=== PATIENT | male | born 1940 | race Caucasian/White ===

== ENCOUNTER 2016-03-08 09:39 | Outpatient (CLI) | payer MEDICARE, OTHER | END 2016-03-08 09:40 | disposition home or self-care (01) | DX: E78.5 Hyperlipidemia, unspecified (principal); I10 Essential (primary) hypertension; L57.0 Actinic keratosis; M25.511 Pain in right shoulder ==

== ENCOUNTER 2016-11-22 13:49 | Outpatient (CLI) | payer MEDICARE, OTHER ==
--- NOTE | 2016-11-22 16:17 | XRAY Report ---
TWO VIEW RIGHT LOWER LE11/22/2016 CLINICAL INDICATION: Cellulitis. FINDINGS: Frontal and lateral views of the right lower leg demonstrate no evidence of fracture. Diff use soft tissue swelling is present. No radiopaque foreign body is seen in the soft tissues. No osteo lysis is seen to suggest osteomyelitis. IMPRESSION: SOFT TISSUE SWELLING, BUT NO EVIDENCE OF FRACTURE OR OSTEOMYELITIS. JOB #: [id number] EXT JOB #:[id number]
== END 2016-11-22 13:50 | disposition home or self-care (01) ==
LOC: DI.S 13:49
PROVIDERS: ATTEND Internal Medicine
DX: L03.115 Cellulitis of right lower limb (principal)

== ENCOUNTER 2016-12-28 10:06 | Outpatient (CLI) | payer MEDICARE, OTHER ==
[2016-12-28 18:17] LABS: BUN - BLOOD UREA NITROGEN 18 mg/dL (6-20); CALCIUM 9.4 mg/dL (8.5-10.3); CARBON DIOXIDE - CO2 26 mmol/L (21-32); CHLORIDE 105 mmol/L (101-111); CHOL/HDL RATIO 3.6 (<5.0); CHOLESTEROL 145 mg/dL; CREATININE 0.9 mg/dL (0.6-1.2); GFR - MDRD 82 (>89); GLUCOSE 95 mg/dL (70-100); HDL CHOLESTEROL 40 mg/dL; LDL/HDL RATIO 1.8 (<3.6); POTASSIUM 4.4 mmol/L (3.5-5.0); SODIUM 139 mmol/L (135-145); TRIGLYCERIDES 165 mg/dL; VLDL CHOLESTEROL 33 mg/dL
== END 2016-12-28 10:07 | disposition home or self-care (01) ==
LOC: LAB.F 10:06
PROVIDERS: ATTEND Internal Medicine
DX: I10 Essential (primary) hypertension (principal); L03.115 Cellulitis of right lower limb; Z79.899 Other long term (current) drug therapy; I25.810 Atherosclerosis of coronary artery bypass graft(s) without angina pectoris; Z95.1 Presence of aortocoronary bypass graft; I34.0 Nonrheumatic mitral (valve) insufficiency; E78.5 Hyperlipidemia, unspecified; G47.33 Obstructive sleep apnea (adult) (pediatric)
CPT/HCPCS: 36415; 80048; 80061; 82607

== ENCOUNTER 2017-02-23 11:39 | Outpatient (CLI) | payer MEDICARE, OTHER ==
--- NOTE | 2017-02-23 12:43 | XRAY Report ---
DATE OF SERVICE: 02/23/2017 TWO VIEW CHEST: 02/23/2017 CLINICAL INDICATION: Cold. COMPARISON: 08/12/2015. FINDINGS: Frontal and lateral views of the chest demonstrate changes of previous cardiac surgery. The cardiac silhouette is not enlarged. The lungs are hyperinflated, suggestive of COPD. No focal consolidation, effusion, or pneumothorax is present. IMPRESSION: HYPERINFLATION, SUGGESTIVE OF COPD. NO EVIDENCE OF ACUTE CARDIOPULMONARY DISEASE. TD: 02/23/2017 13:42
== END 2017-02-23 11:40 | disposition home or self-care (01) ==
LOC: DI 11:39
PROVIDERS: ATTEND Internal Medicine
DX: R07.81 Pleurodynia (principal)
CPT/HCPCS: 71046

== ENCOUNTER 2017-06-28 14:35 | Outpatient (CLI) | payer MEDICARE, OTHER ==
--- NOTE | 2017-06-29 09:04 | XRAY Report ---
THREE VIEW RIGHT SHOULDER: 06/28/2017 CLINICAL INDICATION: Arthralgia. FINDINGS: AP, oblique, scapular Y views of the right shoulder demonstrate severe osteoarthritis of the glenohumeral joint, with bulky osteophytes. There is no evidence of acute fracture or dislocation. No radiopaque foreign body is seen in the soft tissues. IMPRESSION: SEVERE GLENOHUMERAL OSTEOARTHRITIS. TD: 06/29/2017 08:56
== END 2017-06-28 14:36 | disposition home or self-care (01) ==
LOC: DI.S 14:35
PROVIDERS: ATTEND Internal Medicine
DX: M25.511 Pain in right shoulder (principal); M19.011 Primary osteoarthritis, right shoulder

== ENCOUNTER 2017-12-15 13:21 | Outpatient (CLI) | payer MEDICARE, OTHER ==
[2017-12-15 18:25] LABS: BUN - BLOOD UREA NITROGEN 16 mg/dL (6-20); CALCIUM 9.5 mg/dL (8.5-10.3); CARBON DIOXIDE - CO2 28 mmol/L (21-32); CHLORIDE 107 mmol/L (101-111); CHOL/HDL RATIO 3.1 (<5.0); CHOLESTEROL 151 mg/dL; GFR - MDRD 72 (>89); GLUCOSE 100 mg/dL (70-100); HDL CHOLESTEROL 49 mg/dL; LDL CHOLESTEROL,CALCULATED 69 mg/dL; LDL/HDL RATIO 1.4 (<3.6); SODIUM 142 mmol/L (135-145); VLDL CHOLESTEROL 33 mg/dL
== END 2017-12-15 13:22 | disposition home or self-care (01) ==
LOC: LAB.F 13:21
PROVIDERS: ATTEND Internal Medicine Interventional Cardiology
DX: I25.810 Atherosclerosis of coronary artery bypass graft(s) without angina pectoris (principal)
CPT/HCPCS: 36415; 80048; 80061; 83721

== ENCOUNTER 2018-09-01 18:09 | Outpatient (CLI) | payer MEDICARE, OTHER ==
--- NOTE | 2018-09-02 19:28 | XRAY Report ---
Reason: ACUTE BRONCHITIS, UNSPECIFIED Procedure Date: 09/01/2018 Accession Number: [id number] / [id number] Procedure: XR - Chest 2 View X-Ray CPT Code: 82030 FULL RESULT: EXAM: CHEST RADIOGRAPHY EXAM DATE: 09/01/2018 06:15 PM. CLINICAL HISTORY: ACUTE BRONCHITIS, UNSPECIFIED. COMPARISON: CHEST 2 VIEW 02/23/2017 11:46 AM. TECHNIQUE: 2 views. FINDINGS: Lungs/Pleura: No overt edema. No focal pneumonia. No gross pneumothorax or large effusion. Mediastinum: Heart size within normal limits. No mediastinal shift. Other: Previous median sternotomy. IMPRESSION: No acute process seen in the chest. RADIA
== END 2018-09-01 18:10 | disposition home or self-care (01) ==
LOC: DI 18:09
PROVIDERS: ATTEND Internal Medicine
DX: J20.9 Acute bronchitis, unspecified (principal)
CPT/HCPCS: 71046

== ENCOUNTER 2018-09-23 16:02 | Outpatient (CLI) | payer MEDICARE, OTHER ==
--- NOTE | 2018-09-25 06:37 | XRAY Report ---
Reason: loss of ROM Procedure Date: 09/23/2018 Accession Number: [id number] / [id number] Procedure: XR - Shoulder 3 View RT CPT Code: FULL RESULT: EXAM: RIGHT SHOULDER RADIOGRAPHY EXAM DATE: 09/23/2018 04:20 PM. CLINICAL HISTORY: Constant dull ache. Decreased range of motion. COMPARISON: SHOULDER 3 VIEW RT 06/28/2017 2:50 PM. TECHNIQUE: 4 views. FINDINGS: Bones: Normal. No fracture or bone lesion. Joints: No dislocation. Worsening sclerosis, spurring, narrowing of the glenohumeral joint. Soft tissues: The visualized hemithorax is unremarkable. No soft tissue calcification. IMPRESSION: Advanced worsening osteoarthritis of the glenohumeral joint. RADIA
== END 2018-09-23 16:03 | disposition home or self-care (01) ==
LOC: DI 16:02
PROVIDERS: ATTEND Internal Medicine
DX: M19.011 Primary osteoarthritis, right shoulder (principal)

== ENCOUNTER 2018-10-10 10:40 | Outpatient (CLI) | payer MEDICARE, OTHER | END 2018-10-10 10:41 | disposition home or self-care (01) | LOC: LAB.S 10:40 | PROVIDERS: ATTEND Internal Medicine | DX: Z53.9 Procedure and treatment not carried out, unspecified reason (principal) ==

== ENCOUNTER 2018-10-11 09:44 | Outpatient (CLI) | payer MEDICARE, OTHER ==
[2018-10-11 17:57] LABS: BASOPHILS % (AUTO) 0.6 %; EOSINOPHILS # (AUTO) 0.2 10^3/uL (0.0-0.7); EOSINOPHILS % (AUTO) 3.4 %; HGB - HEMOGLOBIN 15.3 g/dL (14.0-18.0); LYMPHOCYTES # (AUTO) 1.9 10^3/uL (1.5-3.5); LYMPHOCYTES % (AUTO) 30.6 %; MEAN CORPUSCULAR HEMOGLOBIN 32.4 pg (27.0-31.0); MEAN CORPUSCULAR HGB CONC 33.2 g/dL (32.0-36.0); MEAN CORPUSCULAR VOLUME 97.7 fL (80.0-94.0); MEAN PLATELET VOLUME 10.3 fL (7.4-11.4); MONOCYTES # (AUTO) 0.6 10^3/uL (0.0-1.0); NEUTROPHILS # (AUTO) 3.4 10^3/uL (1.5-6.6); NEUTROPHILS % (AUTO) 55.6 %; PLT - PLATELET COUNT 174 10^3/uL (130-450); RED BLOOD COUNT 4.72 10^6/uL (4.70-6.10); RED CELL DISTRIBUTION WIDTH 12.4 % (12.0-15.0); WHITE BLOOD COUNT 6.2 x10^3/uL (4.8-10.8)
[2018-10-11 18:26] LABS: ALBUMIN 4.4 g/dL (3.2-5.5); ALBUMIN/GLOBULIN RATIO 1.6 (1.0-2.2); ALKALINE PHOSPHATASE 101 IU/L (42-121); ALT ALANINE AMINOTRANSFERASE 37 IU/L (10-60); AST ASPARTATE AMINOTRANSFERASE 24 IU/L (10-42); BILIRUBIN,TOTAL 1.5 mg/dL (0.2-1.0); BUN - BLOOD UREA NITROGEN 18 mg/dL (6-20); CALCIUM 9.4 mg/dL (8.5-10.3); CARBON DIOXIDE - CO2 28 mmol/L (21-32); CHLORIDE 106 mmol/L (101-111); CHOL/HDL RATIO 4.3 (<5.0); CHOLESTEROL 196 mg/dL; CREATININE 1.1 mg/dL (0.6-1.2); GFR - MDRD 64 (>89); GLUCOSE 112 mg/dL (70-100); HDL CHOLESTEROL 46 mg/dL; LDL CHOLESTEROL,CALCULATED 104 mg/dL; LDL/HDL RATIO 2.3 (<3.6); SODIUM 140 mmol/L (135-145); TOTAL PROTEIN 7.1 g/dL (6.7-8.2); VLDL CHOLESTEROL 46 mg/dL
== END 2018-10-11 09:45 | disposition home or self-care (01) ==
LOC: LAB.S 09:44
PROVIDERS: ATTEND Internal Medicine
DX: I12.9 Hypertensive chronic kidney disease with stage 1 through stage 4 chronic kidney disease, or unspecified chronic kidney disease (principal); N18.9 Chronic kidney disease, unspecified; I25.10 Atherosclerotic heart disease of native coronary artery without angina pectoris; E78.5 Hyperlipidemia, unspecified; N40.0 Benign prostatic hyperplasia without lower urinary tract symptoms
CPT/HCPCS: 36415; 80053; 80061; 83721; 84153; 84443; 85025

== ENCOUNTER 2018-11-01 07:37 | Outpatient (CLI) | payer MEDICARE, OTHER | END 2018-11-01 07:38 | disposition home or self-care (01) | LOC: DI 07:37 | PROVIDERS: ATTEND Internal Medicine Interventional Cardiology | DX: I34.0 Nonrheumatic mitral (valve) insufficiency (principal); Z95.1 Presence of aortocoronary bypass graft | CPT/HCPCS: 93306 ==

== ENCOUNTER 2020-05-15 09:59 | Outpatient (CLI) | payer MEDICARE, OTHER ==
[2020-05-15 15:20] LABS: BUN - BLOOD UREA NITROGEN 18 mg/dL (6-20); CALCIUM 9.5 mg/dL (8.5-10.3); CARBON DIOXIDE - CO2 29 mmol/L (21-32); CHLORIDE 107 mmol/L (101-111); CHOL/HDL RATIO 3.6 (<5.0); CHOLESTEROL 175 mg/dL; CREATININE 1.1 mg/dL (0.6-1.2); GFR - MDRD 64 (>89); GLUCOSE 121 mg/dL (70-100); HDL CHOLESTEROL 48 mg/dL; LDL CHOLESTEROL,CALCULATED 101 mg/dL; LDL/HDL RATIO 2.1 (<3.6); POTASSIUM 4.2 mmol/L (3.5-5.0); SODIUM 142 mmol/L (135-145); TRIGLYCERIDES 132 mg/dL; VLDL CHOLESTEROL 26 mg/dL
== END 2020-05-15 10:00 | disposition home or self-care (01) ==
LOC: LAB.S 09:59
PROVIDERS: ATTEND Internal Medicine Interventional Cardiology
DX: I25.810 Atherosclerosis of coronary artery bypass graft(s) without angina pectoris (principal)
CPT/HCPCS: 36415; 80048; 80061; 83721

== ENCOUNTER 2021-06-08 12:20 | Outpatient (CLI) | payer MEDICARE, OTHER ==
[2021-06-08 14:36] LABS: BASOPHILS % (AUTO) 0.6 %; EOSINOPHILS # (AUTO) 0.2 10^3/uL (0.0-0.7); EOSINOPHILS % (AUTO) 3.6 %; HCT - HEMATOCRIT 43.4 % (42.0-52.0); HGB - HEMOGLOBIN 14.2 g/dL (14.0-18.0); LYMPHOCYTES # (AUTO) 1.5 10^3/uL (1.5-3.5); LYMPHOCYTES % (AUTO) 23.9 %; MEAN CORPUSCULAR HEMOGLOBIN 32.3 pg (27.0-31.0); MEAN CORPUSCULAR HGB CONC 32.7 g/dL (32.0-36.0); MEAN CORPUSCULAR VOLUME 98.9 fL (80.0-94.0); MEAN PLATELET VOLUME 9.9 fL (7.4-11.4); MONOCYTES # (AUTO) 0.5 10^3/uL (0.0-1.0); MONOCYTES % (AUTO) 8.1 %; NEUTROPHILS % (AUTO) 63.2 %; PLT - PLATELET COUNT 167 10^3/uL (130-450); RED BLOOD COUNT 4.39 10^6/uL (4.70-6.10); RED CELL DISTRIBUTION WIDTH 12.5 % (12.0-15.0); WHITE BLOOD COUNT 6.4 x10^3/uL (4.8-10.8)
[2021-06-08 14:59] LABS: T4 (THYROXINE) 8.04 ug/dL (6.09-12.23)
[2021-06-08 15:01] LABS: ALBUMIN 3.9 g/dL (3.2-5.5); ALBUMIN/GLOBULIN RATIO 1.7 (1.0-2.2); ALKALINE PHOSPHATASE 92 IU/L (42-121); ALT ALANINE AMINOTRANSFERASE 38 IU/L (10-60); AST ASPARTATE AMINOTRANSFERASE 31 IU/L (10-42); BUN - BLOOD UREA NITROGEN 19 mg/dL (6-20); CALCIUM 9.1 mg/dL (8.5-10.3); CARBON DIOXIDE - CO2 27 mmol/L (21-32); CHLORIDE 107 mmol/L (101-111); CHOL/HDL RATIO 2.9 (<5.0); CHOLESTEROL 150 mg/dL; CREATININE 1.3 mg/dL (0.6-1.2); GFR - MDRD 53 (>89); GLUCOSE 148 mg/dL (70-100); HDL CHOLESTEROL 51 mg/dL; LDL CHOLESTEROL,CALCULATED 78 mg/dL; LDL/HDL RATIO 1.5 (<3.6); POTASSIUM 4.5 mmol/L (3.5-5.0); SODIUM 142 mmol/L (135-145); TOTAL PROTEIN 6.2 g/dL (6.7-8.2); TRIGLYCERIDES 106 mg/dL; VLDL CHOLESTEROL 21 mg/dL
[2021-06-08 15:03] LABS: THYROID STIMULATING HORMONE 4.24 uIU/mL (0.34-5.60)
== END 2021-06-08 12:21 | disposition home or self-care (01) ==
LOC: LAB.S 12:20
PROVIDERS: ATTEND Nurse Practitioner Family
DX: R00.2 Palpitations (principal); I49.8 Other specified cardiac arrhythmias; E78.5 Hyperlipidemia, unspecified
CPT/HCPCS: 36415; 80053; 80061; 83721; 83735; 84436; 84443; 85025

== ENCOUNTER 2021-11-09 08:00 | Outpatient (CLI) | payer MEDICARE, OTHER ==
[2021-11-09 14:44] LABS: BILIRUBIN,URINE NEGATIVE (NEGATIVE); GLUCOSE, URINE (UA) NEGATIVE (NEGATIVE); KETONES,URINE (UA) NEGATIVE (NEGATIVE); LEUKOCYTE ESTERASE, URINE NEGATIVE (NEGATIVE); NITRITE,URINE NEGATIVE (NEGATIVE); OCCULT BLOOD,URINE SMALL (NEGATIVE); PH,URINE 5.5 PH (5.0-7.5); PROTEIN,URINE TRACE mg/dL (NEGATIVE); UROBILINOGEN,URINE 0.2 (NORMAL) E.U./dL (NORMAL)
[2021-11-09 14:55] LABS: BACTERIA,URINE None Seen /HPF (None Seen); CLARITY,URINE CLEAR (CLEAR); RBC,URINE None Seen /HPF (0-5); SQUAMOUS EPITHELIAL CELL,UR RARE Squamous (<= Few); WBC,URINE 0-3 /HPF (0-3)
[2021-11-09 15:00] LABS: ALBUMIN 4.4 g/dL (3.2-5.5); ALBUMIN/GLOBULIN RATIO 1.5 (1.0-2.2); ALKALINE PHOSPHATASE 101 IU/L (42-121); ALT ALANINE AMINOTRANSFERASE 25 IU/L (10-60); AST ASPARTATE AMINOTRANSFERASE 23 IU/L (10-42); BILIRUBIN,TOTAL 0.8 mg/dL (0.2-1.0); BUN - BLOOD UREA NITROGEN 13 mg/dL (6-20); CALCIUM 9.7 mg/dL (8.5-10.3); CARBON DIOXIDE - CO2 29 mmol/L (21-32); CHLORIDE 104 mmol/L (101-111); CHOL/HDL RATIO 3.6 (<5.0); CHOLESTEROL 210 mg/dL; GFR - MDRD 71 (>89); GLUCOSE 121 mg/dL (70-100); HDL CHOLESTEROL 59 mg/dL; LDL CHOLESTEROL,CALCULATED 128 mg/dL; LDL/HDL RATIO 2.2 (<3.6); MAGNESIUM 2.4 mg/dL (1.7-2.8); POTASSIUM 4.7 mmol/L (3.5-5.0); SODIUM 141 mmol/L (135-145); TOTAL PROTEIN 7.3 g/dL (6.7-8.2); TRIGLYCERIDES 117 mg/dL; VLDL CHOLESTEROL 23 mg/dL
== END 2021-11-09 23:59 | disposition home or self-care (01) ==
LOC: LAB.S 08:00
PROVIDERS: ATTEND Internal Medicine
DX: I12.9 Hypertensive chronic kidney disease with stage 1 through stage 4 chronic kidney disease, or unspecified chronic kidney disease (principal); N18.9 Chronic kidney disease, unspecified; E78.5 Hyperlipidemia, unspecified; I25.10 Atherosclerotic heart disease of native coronary artery without angina pectoris; I73.9 Peripheral vascular disease, unspecified; Z79.899 Other long term (current) drug therapy
CPT/HCPCS: 36415; 80053; 80061; 81001; 82607; 83721; 83735; 84443

== ENCOUNTER 2021-11-18 10:58 | Outpatient (CLI) | payer MEDICARE, OTHER ==
--- NOTE | 2021-11-18 17:01 | Ultrasound Report ---
PROCEDURE: Duplex Lwr Ext Arterial RT INDICATIONS: PERIPHERAL VASCULAR DISEASE TECHNIQUE: Color and pulse Doppler interrogation was performed of the right lower extremity arterial system, wit h image documentation. COMPARISON: None FINDINGS: Common femoral artery: 92.5 cm/sec, with triphasic flow. Deep femoral artery: 50.0 cm/sec, with triphasic flow. Proximal superficial femoral artery: 56.7 cm/sec, with triphasic flow. Mid superficial femoral artery: 66.0 cm/sec, with triphasic flow. Distal superficial femoral artery: 83.7 cm/sec, with triphasic flow. Popliteal artery: 61.0 cm/sec, with triphasic flow. Posterior tibial artery: 63.6 cm/sec, with triphasic flow. Anterior tibial artery/dorsalis pedis: 75.7/43.8 cm/sec, with triphasic flow. Sheppard-scale imaging description: Moderate plaque present. No significant stenosis. IMPRESSION: 1. No evidence of inflow stenosis. 2. Diffuse calcific plaque. 3. No evidence of significant stenosis from the right common femoral through the popliteal. Normal tr iphasic waveforms throughout. Reviewed by: Dayron Decker MD on 11/18/2021 5:00 PM PDT Approved by: Dayron Decker MD on 11/18/2021 5:00 PM PDT Station ID: [id number]
== END 2021-11-18 10:59 | disposition home or self-care (01) ==
LOC: DI 10:58
PROVIDERS: ATTEND Family Medicine
DX: I70.211 Atherosclerosis of native arteries of extremities with intermittent claudication, right leg (principal)

== ENCOUNTER 2022-01-04 12:01 | Outpatient (CLI) | payer MEDICARE, OTHER ==
--- NOTE | 2022-01-04 15:40 | XRAY Report ---
PROCEDURE: Chest 2 View X-Ray INDICATIONS: COUGH TECHNIQUE: 2 views of the chest were acquired. COMPARISON: Chest x-ray 09/01/2018 FINDINGS: Surgical changes and devices: Sternal wires. Lungs and pleura: No pleural effusions or pneumothorax. Lungs are clear. Mediastinum: Mediastinal contours are normal. Heart size is enlarged. Bones and chest wall: No suspicious bony abnormalities. Soft tissues appear unremarkable. IMPRESSION: No acute pulmonary process. Reviewed by: Eugenia Arndt MD on 01/04/2022 3:39 PM PST Approved by: Eugenia Arndt MD on 01/04/2022 3:39 PM [facility] Station ID: [id number]
== END 2022-01-04 12:02 | disposition home or self-care (01) ==
LOC: DI.S 12:01
PROVIDERS: ATTEND Internal Medicine
DX: R05.9 Cough, unspecified (principal)

== ENCOUNTER 2022-06-30 11:22 | Outpatient (CLI) | payer MEDICARE, OTHER ==
[2022-06-30 14:25] LABS: BASOPHILS # (AUTO) 0.1 10^3/uL (0.0-0.1); EOSINOPHILS # (AUTO) 0.3 10^3/uL (0.0-0.7); EOSINOPHILS % (AUTO) 5.1 %; HCT - HEMATOCRIT 43.2 % (42.0-52.0); HGB - HEMOGLOBIN 14.2 g/dL (14.0-18.0); LYMPHOCYTES # (AUTO) 1.2 10^3/uL (1.5-3.5); LYMPHOCYTES % (AUTO) 20.5 %; MEAN CORPUSCULAR HEMOGLOBIN 32.2 pg (27.0-31.0); MEAN CORPUSCULAR HGB CONC 32.9 g/dL (32.0-36.0); MEAN PLATELET VOLUME 10.7 fL (7.4-11.4); MONOCYTES # (AUTO) 0.5 10^3/uL (0.0-1.0); MONOCYTES % (AUTO) 7.8 %; NEUTROPHILS # (AUTO) 3.8 10^3/uL (1.5-6.6); NEUTROPHILS % (AUTO) 65.3 %; PLT - PLATELET COUNT 149 10^3/uL (130-450); RED BLOOD COUNT 4.41 10^6/uL (4.70-6.10); RED CELL DISTRIBUTION WIDTH 12.8 % (12.0-15.0); WHITE BLOOD COUNT 5.9 x10^3/uL (4.8-10.8)
[2022-06-30 15:23] LABS: ALBUMIN/GLOBULIN RATIO 1.4 (1.0-2.2); ALKALINE PHOSPHATASE 88 IU/L (42-121); ALT ALANINE AMINOTRANSFERASE 20 IU/L (10-60); AST ASPARTATE AMINOTRANSFERASE 17 IU/L (10-42); BILIRUBIN,TOTAL 1.8 mg/dL (0.2-1.0); BUN - BLOOD UREA NITROGEN 12 mg/dL (6-20); CALCIUM 9.1 mg/dL (8.5-10.3); CARBON DIOXIDE - CO2 28 mmol/L (21-32); CHLORIDE 111 mmol/L (101-111); CHOL/HDL RATIO 4.2 (<5.0); CHOLESTEROL 217 mg/dL; GFR - MDRD 71 (>89); GLUCOSE 114 mg/dL (70-100); HDL CHOLESTEROL 52 mg/dL; LDL CHOLESTEROL,CALCULATED 149 mg/dL; LDL/HDL RATIO 2.9 (<3.6); MAGNESIUM 2.2 mg/dL (1.7-2.8); SODIUM 144 mmol/L (135-145); TOTAL PROTEIN 6.8 g/dL (6.7-8.2); TRIGLYCERIDES 78 mg/dL; VLDL CHOLESTEROL 16 mg/dL
== END 2022-06-30 11:23 | disposition home or self-care (01) ==
LOC: LAB.S 11:22
PROVIDERS: ATTEND Internal Medicine
DX: Z79.899 Other long term (current) drug therapy (principal); Z12.5 Encounter for screening for malignant neoplasm of prostate; E78.00 Pure hypercholesterolemia, unspecified; I10 Essential (primary) hypertension; E78.5 Hyperlipidemia, unspecified; D50.9 Iron deficiency anemia, unspecified; I25.10 Atherosclerotic heart disease of native coronary artery without angina pectoris
CPT/HCPCS: 36415; 80053; 80061; 83735; 84443; 85025; 85651; G0103; 83721; 84153